=== PATIENT | female | born 1970 | race Hispanic/Latino ===

== ENCOUNTER 2023-10-01 15:02 | Emergency (ER) | payer SELFPAY ==
[2023-10-01 15:08] VITALS: BP 161/85
[2023-10-01 15:36] LABS: Urine Albumin Negative (Neg - Trace); Urine Bilirubin Negative (Negative); Urine Character Clear (Clear); Urine Color Yellow; Urine Glucose Negative (Negative); Urine Ketone Negative (Negative); Urine Leukocyte Negative (Negative); Urine Nitrite Negative (Negative); Urine Occult Blood Negative (Negative); Urine Specific Gravity 1.025 (<1.030); Urine Urobilinogen Negative (Neg - 1+)
[2023-10-01 15:41] LABS: % Basophils 0.6 % (0-2); % Eosinophils 1.8 % (0-6); % Immature Granulocytes 0.1 % (0-0.5); % Lymphocytes 33.8 % (20.5-51.1); % Monocytes 5.4 % (1.7-9.3); % Neutrophils 58.3 % (42.2-75.2); Absolute Basophils 0.1 10^3/uL (0-0.2); Absolute Eosinophils 0.2 10^3/uL (0-0.7); Absolute Lymphocytes 2.8 10^3/uL (1.2-3.4); Absolute Monocytes 0.5 10^3/uL (0.1-0.6); Absolute Neutrophils 4.9 10^3/uL (1.4-6.5); Hematocrit 41.8 % (37.0-47.0); Mean Corp Hgb Conc. 33.5 g/dL (33.0-37.0); Mean Corpuscular Hgb 29.5 pg (27.0-31.0); Mean Corpuscular Volume 88.2 fL (81.0-99.0); Mean Platelet Volume 10.3 fL (7.4-10.4); Nucleated Red Blood Cells % 0 %; Platelet Count 312 10^3/uL (130-400); Red Blood Cell Count 4.74 10^6/uL (4.20-5.40); White Blood Cell Count 8.4 10^3/uL (4.8-10.8)
[2023-10-01 15:52] LABS: ALT (SGPT) 25 U/L (0-35); AST (SGOT) 23 U/L (14-36); Albumin 3.9 g/dl (3.5-5.0); Alkaline Phosphatase 99 U/L (38-126); Blood Urea Nitrogen 17 mg/dl (7-17); Calcium 9.6 mg/dl (8.4-10.2); Carbon Dioxide 22 mmol/L (22-30); Chloride 105 mmol/L (98-107); Glucose 138 mg/dl (70-99); Potassium 4.3 mmol/L (3.5-5.1); Sodium 137 mmol/L (135-145); Total Bilirubin 0.4 mg/dl (0.2-1.3); Total Protein 6.7 g/dl (6.3-8.2); eGFR > 60.00
[2023-10-01 16:00] VITALS: BMI 43.3
[2023-10-01 16:06] VITALS: BP 146/77
--- NOTE | 2023-10-01 17:40 | ED.GENMED ---
History of Present Illness
General
Chief Complaint: Flank Pain
Source: patient
Exam Limitations: none
Time Seen by Provider: 10/01/23 17:02
Travel History
Have you had any contact with someone who has COVID-19?: No
Do you have any symptoms of coronavirus? Fever > 100 degrees, chills, cough, shortness of breath, sore throat, loss of taste or smell, muscle aches, or headache?: No
History of Present Illness
History of Present Illness:
See MDM
Past History
Past History
ED Past Medical History: Asthma, COPD, Other (Back pain and Migraines, Diverticulitis, rectal bleeding, Kidney stones, Migraines, herniated disc) and Other (Renal calculi/stones MULTIPLE BLADDER 'PROBLEMS'); Negative HTN, Hypercholesterolemia or
NIDDM
ED Past Surgical History: Gynecological (Hysterectomy, D&C, Tubal), Urological (bladder surgery x 2) and Other ( LEFT BREAST BENIGHN TUMOR REMOVED, rectocele repair, RECTAL SURGERY X3, HERNIA REPAIR, KIDNEY STONE REMOVAL)
Social History
Tobacco: Non-smoker
Alcohol: None
Drug: None
Personal:
Living: with family
Employment: Employed
Family History
Family History: Other (Noncontributory)
Phy Exam
Physical Exam
Physical Exam:
See MDM
Course
Orders/Labs/Results
Orders:
Orders
10/01/23 15:22
Complete Blood Count/With Diff Urgent
Comprehensive Metabolic Panel Urgent
Urinalysis Reflex To Culture Urgent
Date Specimen was Collected: 10/01/23
Time Specimen was Collected: 15:11
10/01/23 17:40
CT Abd/pel Without Iv Or Oral Urgent
Comment:
Reason For Exam: left flank pain radiating to left groin
Ketorolac [Toradol] 30 mg IV NOW STA
Abnormal Lab Results
10/01/23
15:22
Creatinine 0.5 L mg/dL
(0.6-1.0)
Glucose 138 H mg/dl
(70-99)
10/01/23 15:22
10/01/23 15:22
Vital Signs
Initial and Last Documented VS:
Initial Vital Signs
Temp Pulse Resp BP Pulse Ox
98.7 F 77 18 161/85 94
10/01/23 15:08 10/01/23 15:08 10/01/23 15:08 10/01/23 15:08 10/01/23 15:08
Last Documented Vital Signs
Temp Pulse Resp BP Pulse Ox
98.7 F 69 16 146/77 95
10/01/23 15:08 10/01/23 16:06 10/01/23 16:06 10/01/23 16:06 10/01/23 16:06
MDM/Problems Addressed
Differential Diagnosis Includes:
HPI and MDM Narrative:
53-year-old female presenting with left flank pain. The pain is now radiating to her left groin. She has a history of both kidney stones and diverticulitis. She states this is similar presentation to either one of those. She is nauseous.
Patient denies any rash
On exam, there is left flank pain. There is mild left lower quadrant pain as well. Will obtain CT looking for evidence of kidney stone pathology or possibly diverticulitis
Physical exam
General: Well appearing and non-toxic
HEENT: protecting airway
Neck: appears supple
CV: No evidence of cyanosis
Resp: No accessory muscle use
Abd: Non-distended. Mild left flank tenderness. No rebound
Extremities: No deformities
Neuro: alert
Psych: Normal affect
Skin: Intact
Problems Addressed including Acute and Chronic Conditions affecting care:
1. Left flank pain
Acuity: acute
Prognosis: stable
Details: Will give dose of Toradol and obtain CT to rule out kidney stone pathology versus diverticulitis. Blood work without significant. Urinalysis negative
Updates
CT negative for kidney stones. There is diverticulosis in the area of pain. Given the pain, will start treatment with Levaquin and Flagyl as early diverticulitis
Patient given productive CT and discussed having her doctor follow-up the incidental findings
Differential Diagnosis (but not limited to): Diverticulitis, constipation, obstructive ureteral stone
Testing considered: CT abdomen pelvis with contrast
Drug therapy (if applicable): OTC meds, please see d/c instruction regarding Rx drugs
Amount and/or Complexity of Data Reviewed
Clinical info obtained from: Patient
External data reviewed: N/A
Labs I independently reviewed (but not limited to): Blood cell count normal
Radiology: The CT scan was personally and independently reviewed. In addition, official CT report reviewed.
Pulse Ox: not hypoxic
EKG independently reviewed: N/A
Pilot Can Router: N/A
Critical Care: N/A
Risk of Complication:
Social Determinants of health: Good social support
Discussed with other providers: N/A
Escalation of Care includes Admit/Obs: After being observed in the Emergency Department, pt stable for discharge.
Occasional wrong word or 'sound a like' substitutions may have occurred due to the inherent limitations of voice recognition software. Read the chart carefully and recognize, using context, where substitutions have occurred.
*Critical Care Note
Total Time (30-74mins, 75-104mins- exclusive of procedures): Not Applicable
ED Attending Note
-
Portions of this chart may have been created with voice recognition software.� Occasional wrong word or��sound alike� substitutions may have occurred due to the inherent limitations of voice recognition software.
Discharge Plan
Departure
Patient Disposition: Home (Routine Discharge)
Date of Disposition: 10/01/23
Time of Disposition: 20:05
Patient with high blood pressure during this ER visit?: Yes
Discharge Problem:
Diverticulitis
Instructions: Diverticulitis (DC), BLOOD PRESSURE
Prescriptions:
New
metronidazole 500 mg Tablet
500 mg PO TID Qty: 15 0RF
levofloxacin 500 mg Tablet
500 mg PO DAILY Qty: 5 0RF
No Action
albuterol sulfate 2.5 MG/3 ML solution for nebulization
2.5 mg inhalation R Q4HPRN PRN (Reason: cough/wheezing) Qty: 100 0RF
albuterol sulfate 1 PUFF HFA aerosol inhaler
1 puff inhalation R Q4HPRN PRN (Reason: sob)
budesonide-formoterol [Symbicort] 1 PUFF HFA aerosol inhaler
2 puff inhalation R BID
Referrals:
NONE,* [Family Provider] -
Activity Restrictions/Additional Instructions:
Please return for any worsening symptoms.
You may return at any time if you have further concerns.
Please follow up with your doctor at the first available appointment, preferably this week.
Please have your pain reevaluated and please bring the CT to discuss the incidental findings.
Thank you for choosing [facility].
Interventions
Interventions:
*Risk Screen - Suicide Last Done: 10/01/23 15:08
*General Assessment Last Done: 10/01/23 15:08
*Neglect/Abuse Screening Last Done: 10/01/23 15:08
ED- Fall Risk Assessment Last Done: 10/01/23 16:00
*ED COVID-19 Vaccine History Last Done: 10/01/23 16:00
BO-Fnkbuh-Cubibuqcnk Assessment Last Done: 10/01/23 16:00
ED-Female Genitourinary Assessment Last Done: 10/01/23 16:00
[2023-10-01] MEDS: TORADOL 30 MG IV (17:53)
[2023-10-01] MEDS: LEVAQUIN 500 MG PO (20:11)
[2023-10-01] MEDS: FLAGYL 500 MG PO (20:11)
[2023-10-01 20:14] VITALS: BP 140/72
== END 2023-10-01 20:19 | disposition home or self-care (01) ==
LOC: EMR 15:02
PROVIDERS: Emergency Medicine; EMERGENCY PHYSICIAN Student in an Organized Health Care Education/Training Program
DX: K57.32 Diverticulitis of large intestine without perforation or abscess without bleeding (principal); R11.0 Nausea; R03.0 Elevated blood-pressure reading, without diagnosis of hypertension; J44.89 Other specified chronic obstructive pulmonary disease; G43.909 Migraine, unspecified, not intractable, without status migrainosus; Z87.442 Personal history of urinary calculi; Z88.5 Allergy status to narcotic agent; Z91.041 Radiographic dye allergy status
CPT/HCPCS: 99284; 96374; 74176; 80053; 81003; 85025